=== PATIENT | male | born 1985 | race Caucasian/White ===

== ENCOUNTER 2017-12-07 07:58 | Day surgery (SDC) | payer OTHER, SELFPAY ==
[2017-12-07] VITALS (8 sets, daily range): BP systolic 108–141; BP diastolic 64–89; PULSE 55–74; RESP 14–18; TEMP 36.3–37.4; O2SAT 92–100; BMI 28.7
[2017-12-07] MEDS: Cefazolin 2 GM in 0.9% Normal Saline 100 ML IV (09:02)
[2017-12-07] MEDS: Bupivacaine Mpf 0.5% 30 ML VIAL (11:02)
--- NOTE | 2017-12-07 11:03 | DCINST_ITS ---
Discharge Diet: Light diet - advance as tolerated Discharge Activity: Return to Normal Activity, May Drive - when you are no longer taking narcotic pain medications., May Shower - with the bandage in place 1-2 days after surgery. Lifting Restrictions: 20 pounds for 8 weeks. Additional Activity Instructions:: Climbing stairs is fine, walking is encouraged. Sitting in bed may be uncomfortable. Sitting up using your lateral muscles (sitting up sideways) is usually more comfortable. Do not drive, work heavy equipment of sign legal documents for 24 hours. If your hernia repair was an ingunial repair, you may have scrotal swelling, an ice pack and/or athletic support can provide more comfort. Pain medications may cause nausea, you should typically eat light foods as you take your pain medications. Pain medications may also cause constipation. If you have difficulty with this, discuss with your doctor. Call your doctor if your incision/area has: Continuous Slow Oozing, Sudden Increased Bleeding, Increased Pain/ Swelling, Increased Redness, Foul Smelling Discharge Call your doctor if you observe: Fever of 101 or Higher Suture Line Care: Avoid Pulling/Pushing, Avoid Pinching/Bending Additional Dressing/Incision Instructions:: Leave the operative bandage on for 2 -3 days. When you remove the bandage, leave the steri-strips on place until your follow up appointment or they fall off. Allergies/Adverse Reactions: Allergies codeine Allergy (Verified 11/30/17 09:12) Hives Medications to take at Discharge Oxycodone HCl/Acetaminophen [Percocet 5/325] 1 tab PO Q4H PRN PRN 7 Days #14 tab 12/07/17 The following prescriptions were given: Oxycodone HCl/Acetaminophen [Percocet 5/325] 1 tab PO Q4H PRN PRN 7 Days #14 tab PRN Reason: Pain Primary Care Physician: Care Physician,No Primary [Primary Care Provider] - Test Results: Test results from this visit will be discussed in further detail at your follow- up appointment, if applicable. Please Follow Up With: Neymar France MD - [phone] When: Plan to have a follow up appointment in 7 days. Call to schedule.
--- NOTE | 2017-12-07 11:03 | PCM.OPRPT ---
Report of Operation Date of Procedure: 12/07/17 Pre-Operative Diagnosis: left inguinal hernia, probable right inguinal hernia Post-Operative Diagnosis: large left indirect inguinal hernia, smaller right indirect inguinal hernia Surgery/Procedure Performed:: laparoscopic bilateral inguinal hernia repair with mesh - large left, medium right delinquency counselor: Salome Grace Type of Anesthesia:: General Anesthesiologist: Arslan Potter ASA1 Specimen's removed: none Drains: olvera - 300 Estimated Blood Loss (mL): <25 Fluids Replaced: 1300 Description of Procedure: The patient was brought to the operating suite. Sign in was performed verifying patient, site, procedure, position, and DVT prophylaxis with SCDs. Patient received 2 g Ancef antibiotic prophylaxis. Following induction of general anesthetic, a olvera catheter was placed. The patients abdomen was prepped and draped in the usual fashion. Timeout was performed verifying patient, site, position. Local anesthetic was injected below the umbilicus. Incision made and dissection carried down to the umbilical root fascia. 2 stay sutures were placed. Incision made in the fascia, the peritoneum entered under direct visualization. A 10 mm Tran trocar was inserted and secured with the stay sutures. Pneumoperitoneum to 15 mmHg was insufflated. Visual inspection revealed a large indirect left inguinal hernia and a smaller indirect right inguinal hernia. 2 5mm ports were placed in the standard position. the left side was addressed first. The peritoneum was incised and prepared and the dissection was carried out along the space down to the preperitoneal space of the inguinal canal. Dissection was carried down identifying the pubic tubercle, Coopers ligament, the inferior epigastric vessels, and lateral dissection. A large left indirect defect was noted Following this, a Bard 3-D Max mesh - large-size was placed in the left preperitoneal inguinal space. This was secured with a pro-tack tacker along Coopers ligament. The mesh was then further secured over the transversus arch using a secure strap absorbable tacker. Following this, the peritoneum was closed with a running 3-0V lock suture sewn laparoscopically. The right peritoneum was incised and prepared and the dissection was carried out along the space down to the preperitoneal space of the inguinal canal. Dissection was carried down identifying the pubic tubercle, Coopers ligament, the inferior epigastric vessels, and lateral dissection. A small to moderate rightindirect defect was noted Following this, a Bard 3-D Max mesh - medium-sized was placed in the right preperitoneal inguinal space. This was secured with a pro-tack tacker along Coopers ligament. The mesh was then further secured over the transversus arch using a secure strap absorbable tacker. Following this, the peritoneum was closed with a running 3-0V lock suture sewn laparoscopically. An 0 PDS [id number]-[id number] suture was used to close the umbilical incision. 5 ports were removed under direct visualization with no signs of bleeding. Pneumoperitoneum was released. The Tran trocar was removed. The umbilical fascial suture was secured area did skin was closed with interrupted 4-0 Monocryl subcuticular sutures. Steri-Strips and bandages were applied. The patient was brought to recovery room in stable condition. Grafts/Implants Used: left [id number] 09/15/22 -right [id number] 07/16/20 - Admit VTE Documentation VTE Present on Admission: No VTE Mechan Device Prophylaxis: SCD's
--- NOTE | 2017-12-07 11:08 | OP.PCM_ITS ---
Report of Operation Date of Procedure: 12/07/17 Pre-Operative Diagnosis: left inguinal hernia, probable right inguinal hernia Post-Operative Diagnosis: large left indirect inguinal hernia, smaller right indirect inguinal hernia Surgery/Procedure Performed:: laparoscopic bilateral inguinal hernia repair with mesh - large left, medium right rotary drum dyer: Salome Grace Type of Anesthesia:: General Anesthesiologist: Arslan Potter ASA1 Specimen's removed: none Drains: olvera - 300 Estimated Blood Loss (mL): <25 Fluids Replaced: 1300 Description of Procedure: The patient was brought to the operating suite. Sign in was performed verifying patient, site, procedure, position, and DVT prophylaxis with SCDs. Patient received 2 g Ancef antibiotic prophylaxis. Following induction of general anesthetic, a olvera catheter was placed. The patient?s abdomen was prepped and draped in the usual fashion. Timeout was performed verifying patient, site, position. Local anesthetic was injected below the umbilicus. Incision made and dissection carried down to the umbilical root fascia. 2 stay sutures were placed. Incision made in the fascia, the peritoneum entered under direct visualization. A 10 mm Tran trocar was inserted and secured with the stay sutures. Pneumoperitoneum to 15 mmHg was insufflated. Visual inspection revealed a large indirect left inguinal hernia and a smaller indirect right inguinal hernia. 2 5mm ports were placed in the standard position. the left side was addressed first. The peritoneum was incised and prepared and the dissection was carried out along the space down to the preperitoneal space of the inguinal canal. Dissection was carried down identifying the pubic tubercle, Galen?s ligament, the inferior epigastric vessels, and lateral dissection. A large left indirect defect was noted Following this, a Bard 3-D Max mesh - large-size was placed in the left preperitoneal inguinal space. This was secured with a pro-tack tacker along Galen?s ligament. The mesh was then further secured over the transversus arch using a secure strap absorbable tacker. Following this, the peritoneum was closed with a running 3-0V lock suture sewn laparoscopically. The right peritoneum was incised and prepared and the dissection was carried out along the space down to the preperitoneal space of the inguinal canal. Dissection was carried down identifying the pubic tubercle, Galen?s ligament, the inferior epigastric vessels, and lateral dissection. A small to moderate rightindirect defect was noted Following this, a Bard 3-D Max mesh - medium-sized was placed in the right preperitoneal inguinal space. This was secured with a pro-tack tacker along Galen?s ligament. The mesh was then further secured over the transversus arch using a secure strap absorbable tacker. Following this, the peritoneum was closed with a running 3-0V lock suture sewn laparoscopically. An 0 PDS [id number] suture was used to close the umbilical incision. 5 ports were removed under direct visualization with no signs of bleeding. Pneumoperitoneum was released. The Tran trocar was removed. The umbilical fascial suture was secured area did skin was closed with interrupted 4-0 Monocryl subcuticular sutures. Steri-Strips and bandages were applied. The patient was brought to recovery room in stable condition. Grafts/Implants Used: left [id number] 09/15/22 -right [id number] lot [id number] 07/16/20 - Admit VTE Documentation VTE Present on Admission: No VTE Mechan Device Prophylaxis: SCD's
[2017-12-07] MEDS: oxyCODONE 5 MG Tablet PO (13:02)
[2017-12-07] MEDS: Acetaminophen 325 MG Tablet PO (13:02)
== END 2017-12-07 14:15 | disposition home or self-care (01) ==
LOC: SDC 08:01 → AC 08:02
PROVIDERS: Visit Provider Surgery
PROC: (CPT 49650; principal; 2017-12-07 09:15)
DX: K40.20 Bilateral inguinal hernia, without obstruction or gangrene, not specified as recurrent (principal); Z87.891 Personal history of nicotine dependence
CPT/HCPCS: 49650; J7120; C1781; J2405

== ENCOUNTER 2019-11-13 05:14 | Emergency (ER) | payer SELFPAY ==
[2019-11-13] VITALS (12 sets, daily range): BP systolic 121–165; BP diastolic 66–93; PULSE 60–99; RESP 12–20; TEMP 36.7–37.1; O2SAT 95–97; BMI 26.5
--- NOTE | 2019-11-13 05:37 | ED.VIS.GEN ---
History of Present Illness Chief Complaint: Suicidal Informant: Patient, - - commercial escrow officer Narrative: Patient presents with commercial escrow officer secondary to suicidal ideation. Patient is tearful and states that he has been depressed for quite some time. Has had a lot of family life situations causing increased stress recently. He did take a hatchet tonight and cut his left wrist. He states that this was an attempt to get attention from his and have her come get him. Instead she called the police to go check on him. Patient denied that this was an attempt to kill himself. When I asked him if he has thoughts of hurting himself, he laughs and states yeah, now more than ever. When asked how he would hurt himself he declines to answer. Patient does admit that he has been needing psychiatric treatment for quite some time, however was unable to afford it or did not know where to go. Past Medical History - Allergies and Home Meds Allergies/Adverse Reactions: Allergies codeine Allergy (Verified 11/13/19 05:29) Hives Primary Care Physician: Care Physician,No Primary [Primary Care Provider] - Surgical History: herniorrhaphy, - - Right wrist Smoking Status: Current every day smoker Alcohol: Occasional Drugs: Marijuana Review of Systems General: Denies: Chills, Fever Eyes: Denies: Visual changes - bilaterally ENT: Denies: Bilateral ear pain Cardiovascular: Denies: Chest pain Respiratory: Denies: Dyspnea, Cough Gastrointestinal: Denies: Abdominal pain, Nausea, Vomiting, Diarrhea Musculoskeletal: Denies: Extremity Pain Skin: Reports: Wounds Neurological: Denies: Headache Psych: Reports: Depression, Suicidal thoughts Hematologic: Denies: Easy bruising, Easy bleeding Allergy: Denies: Uticaria Physical Exam Vital Signs/Narrative: Vital Signs Temp Pulse Resp BP Pulse Ox 11/13/19 05:15 98.8 F 99 18 165/93 H 95 Inital Vital Signs reviewed: Yes General: Well nourished, Well developed Head: Normocephalic ENT: Moist mucous membranes Neck: Supple Cardiovascular: Regular rate, Regular rhythm Respiratory: No distress, CTA bilaterally Abdomen: Soft, Nontender Extremities: - - 3 cm superficial abrasion left anterior wrist. No bleeding. Neurological: Alert, Oriented x3 Psychological: Tearful, - - Patient is tearful. Has poor eye contact. He speaks with a soft voice. He declines to provide answers when asked how he would hurt himself. Diagnostic/Tx/Re-eval Laboratory Results 11/13/19 11/13/19 05:31 05:31 Sodium 138 Potassium 3.8 Chloride 106 Carbon Dioxide 24.0 Anion Gap 8 BUN 13 Creatinine 0.90 Estim Creat Clear Calc 122.79 Est GFR (MDRD) Af Amer 125 Est GFR (MDRD) Non-Af 104 BUN/Creatinine Ratio 14.4 Glucose 94 Calcium 8.8 Ethyl Alcohol 156.0 - Medical Decision Making Patient does have a sitter at bedside at this time. Chemistry studies and EtOH level have returned. Patient's alcohol level is 156. This will need to be repeated at 8 AM. CBC and urine tox tests are still pending. Patient will be signed out to oncoming physician. He will require evaluation by a either social work nurse counseling center for final disposition. ED Disposition - Plan for ED Patient: Referrals: Care Physician,No Primary [Primary Care Provider] -
[2019-11-13 06:27] LABS: Anion Gap 8 (5-15); BUN 13 mg/dL (7-18); BUN/Creat Ratio 14.4 RATIO (10-20); Calcium,Total 8.8 mg/dL (8.5-10.1); Chloride 106 mmol/L (98-107); EST Glomerular Filtration Rate 104 mL/min (>60); Est Glom Filt Rate - Afr Amer 125 mL/min (>60); Estimated Creatinine Clearance 122.79 ml/min; Glucose 94 mg/dL (74-106); Potassium 3.8 mmol/L (3.5-5.1); Sodium Level 138 mmol/L (136-145)
[2019-11-13 06:30] LABS: Lymphocyte 36 % (19-41); Monocyte 4 % (0-10); Neutrophil-Segmented 60 % (47-70); Total Cells Counted 100 (MANUAL DIFF)
[2019-11-13 06:31] LABS: Differential Comment MANUAL DIFF; Platelet Estimate ADEQUATE (ADEQ); Red Cell Morphology NORM C+C NORMAL (NORM C&C)
[2019-11-13 08:26] LABS: Absolute Lymphocyte Count 2.34 X10^3/uL (0.83-4.51); Absolute Neutrophil Count 5.7 X10^3/uL (2.0-7.7); Basophil# 0.04 X10^3/uL; Basophil% 0.4 % (0-1); Eosinophil# 0.09 X10^3/uL; Hematocrit 46.8 % (40-54); Hemoglobin 15.9 g/dL (13.0-16.5); Lymphocyte # 2.34 X10^3/ul (4.0); Lymphocyte % 26.1 % (19-41); Mean Corpuscular Hgb 30.3 pg (27.0-32.0); Mean Corpuscular Volume 89.1 fL (80-94); Mean Platelet Vol. 9.8 fl (6.2-12.0); Monocyte# 0.74 X10^3/uL; Monocyte% 8.2 % (0-10); NRBC Flagged by Analyzer 0 % (0-5); Neutrophil # 5.73 X10^3/uL (2.7-7.7); Neutrophil % 63.9 % (47-70); Platelet Count 268 K/mm3 (150-450); RBC Distribution Width CV 12.1 % (11.6-14.6); RBC Distribution Width SD 39.6 fl (35.1-43.9); Red Blood Count 5.25 M/mm3 (4.6-6.2)
--- NOTE | 2019-11-13 10:31 | NURSING ---
Pt on phone w/ crisis
--- NOTE | 2019-11-13 10:45 | NURSING ---
Per [facility] pt refusing [facility] it costs too much and he's tired of the hospital. This RN and drilling engineering manager made aware.
--- NOTE | 2019-11-13 11:04 | CM.ED ---
SOCIAL WORK Spoke with Jesika from [facility]. Plan for patient to be hospitalized. Patient with self pay status. Per Jesika, patient will be referred to [place] and [place]. Jesika reports will need COVID test completed. Staff jennifer. Oilvia Jamil, PHOTOGEOLOGIST, LIP CUTTER AND SCORER
--- NOTE | 2019-11-13 12:50 | EKG12_ITS ---
Test Reason : MENTALCLEARANCE Blood Pressure : / mmHG Vent. Rate : 064 BPM Atrial Rate : 064 BPM P-R Int : 166 ms QRS Dur : 100 ms QT Int : 396 ms P-R-T Axes : 049 091 055 degrees QTc Int : 408 ms Normal sinus rhythm Rightward axis Borderline ECG Confirmed by JESSIKA CONNELLY ([id number]), business editor KAROL ENNIS ([id number]) on 11/15/2019 9:01:36 AM Referred By: AMY Confirmed By:JESSIKA CONNELLY
[2019-11-13 13:10] LABS: Amphetamine Urine VISTA POSITIVE (<1000 ng/mL); Barbiturate Urine VISTA NEGATIVE (< 200 ng/mL); Benzodiazepine Urine VISTA NEGATIVE (< 200 ng/mL); Cocaine Urine VISTA NEGATIVE (< 300 ng/mL); Ecstacy Urine VISTA NEGATIVE (< 500 ng/mL); Methadone Urine VISTA NEGATIVE (< 300 ng/mL); PCP Urine VISTA NEGATIVE (< 25 ng/mL); THC Urine VISTA POSITIVE (< 50 ng/mL); Vista UDS pH Range 5
[2019-11-13 13:36] LABS: AST(SGOT) 49 U/L (15-37); Alanine Aminotransfer ALT/SGPT 53 U/L (16-61); Albumin, Serum 3.9 g/dL (3.2-5.0); Alkaline Phosphatase 61 U/L (45-117); Bilirubin, Direct 0.13 mg/dL (0.00-0.30); Globulin 3.8 g/dL (2.2-4.2); Protein, Total 7.7 g/dL (6.4-8.2)
--- NOTE | 2019-11-13 17:57 | NURSING ---
CALLED [facility] ABOUT STATUS OF PATIENT. TALKED TO ERIC. SHE WILL CALL THEM AND CALL US BACK
--- NOTE | 2019-11-13 18:05 | NURSING ---
CAPRI REYES, CALLED BACK. [facility] IS WAITING ON EKG, URINE TOX AND CMP. FAXED THE ABOVE AND COVID RESULTS.
[2019-11-14] VITALS (11 sets, daily range): BP systolic 129–142; BP diastolic 79–89; PULSE 65–79; RESP 16–18; O2SAT 96–97
--- NOTE | 2019-11-14 09:39 | ED.RN ---
SITTER PRESENT AT BEDSIDE. PT REMAINS COOPERATIVE. BREAKFAST TRAY GIVEN. DENIED FURTHER NEEDS AT THAT TIME. PT BACK TO SLEEP. HE VOICES NO CONCERNS AT THIS TIME.
--- NOTE | 2019-11-14 14:53 | ED.RN ---
PT SITTING UP IN CHAIR. LUNCH DELIVERED AND PT DENIES FURTHER NEEDS AT THIS TIME. HE REMAINS COOPERATIVE AND WELL-MANNERED.
--- NOTE | 2019-11-14 16:30 | ED.RN ---
ambrocio Canchola at crisis pt is still 3rd on the list. They will not know if there are discharges until 815am. Pt was referred at [facility] and was declined due to pending domestic issues.
[2019-11-15] VITALS (7 sets, daily range): BP systolic 129–138; BP diastolic 74–84; PULSE 68–80; RESP 14–16; O2SAT 97–100
--- NOTE | 2019-11-15 10:57 | ED.RN ---
NO UPDATE FROM [facility]; RICHARDSON MARAVILLA WITH [facility] SHE HAS BEEN TRYING TO CALL THEM SINCE 0800 THIS MORNING. NO ANSWER. SHE WILL KEEP TRYING TO CALL THEM.
--- NOTE | 2019-11-15 11:31 | ED.RN ---
THIS NURSE SPOKE WITH THE COUNSELING CENTER, [facility] BELIEVES THEY WILL HAVE A BED FOR THE PATIENT THIS AFTERNOON
== END 2019-11-15 13:50 ==
PROVIDERS: Emergency Medicine; Emergency Provider Emergency Medicine
DX: F32.9 Major depressive disorder, single episode, unspecified (principal); R45.851 Suicidal ideations; S60.812A Abrasion of left wrist, initial encounter; X78.8XXA Intentional self-harm by other sharp object, initial encounter; Y93.9 Activity, unspecified; Y92.9 Unspecified place or not applicable; Y99.9 Unspecified external cause status; F17.200 Nicotine dependence, unspecified, uncomplicated
CPT/HCPCS: 36415; 80048; 80076; 80307; 80320; 85025; 87635; 90715; 93005; 94799; 99283; A4216; G0480; U0003

== ENCOUNTER 2020-03-29 12:29 | Emergency (ER) | payer SELFPAY ==
[2019-11-13 05:15] VITALS: BMI 26.5
[2020-03-29 12:29] VITALS: BP 154/104; PULSE 88; RESP 16; TEMP 36.5; O2SAT 98; BMI 28.8
--- NOTE | 2020-03-29 12:51 | ED.VISSUMM ---
- ER Visit Summary Date of Service: 03/29/20 Chief Complaint: [Concern for STD] History of Present Illness: The patient is a 34 M [presents to the emergency department requesting to be tested for chlamydia. Patient states that he has a recent partner that told him that she had chlamydia. Patient is unsure if the partner truly has chlamydia or she is just playing with him. Patient himself has no symptoms of discharge or penile pain. He denies dysuria. He denies any abnormal penile lesions. Patient otherwise has no significant medical history. He denies fevers or recent illness.] Physical Examination: [HEENT-PERRLA, EOMI. Cranial nerves II through XII grossly intact. TMs clear. Mucous membranes moist. No adenopathy. Cardiovascular-regular rate and rhythm without murmur or ectopy Lungs-clear to auscultation, chest wall stable without crepitus or subcu emphysema Abdomen-normoactive bowel sounds, soft, nontender, no rebound or rigidity, no peritoneal signs. exam-patient deferred Extremities-intact ?4, normal range of motion, normal pulses, atraumatic] Test Results: [Urine was obtained for gonorrhea and chlamydia the results of which will be pending.] Emergency Department Course and Treatment: [Patient was treated with Rocephin 250 mg IM as well as Zithromax 1 g p.o.] Treatment Plan: [Patient will be referred to primary care physician complaint evaluation officer for no doc for follow-up to get his results. Patient advised to avoid unprotected intercourse and sexual contact until he gets his results.] Disposition: [Discharged home in stable condition] Impression: [Concern for STD-treated for gonorrhea and chlamydia.] This note was generated with [employer] dictation software. It may contain incorrect words, spelling, and punctuation that were not noted in review of the chart prior to signing ED Disposition - Plan for ED Patient: Referrals: Care Physician,No Primary [Primary Care Provider] -
--- NOTE | 2020-03-29 12:54 | ED.DEP ---
ED Disposition - Plan for ED Patient: Instructions: ED STI Male Treated Referrals: Care Physician,[place] Primary [Primary Care Provider] - Rafael Holloway DO [STAFF PHYSICIAN] - 3-5 Days
[2020-03-29] MEDS: Azithromycin 250 MG Tablet 1000 MG PO (13:20)
[2020-03-29] MEDS: Ceftriaxone 500 MG Vial 250 MG IM (13:21)
[2020-03-29 15:00] LABS: Chlamydia Trachomatis by PCR POSITIVE (Negative)
[2020-03-29 15:01] LABS: Neisserai gonorrhoeae by PCR Negative (Negative); Probe Check PASS; Sample Adequacy Control PASS; Specimen Processing Control PASS
== END 2020-03-29 13:48 | disposition home or self-care (01) ==
LOC: ED 13:39
PROVIDERS: Emergency Provider Emergency Medicine
DX: Z20.2 Contact with and (suspected) exposure to infections with a predominantly sexual mode of transmission (principal); Z72.0 Tobacco use
CPT/HCPCS: 87491; 87591; 96372; 99283